=== PATIENT | male | born 1955 | race Caucasian/White ===

== ENCOUNTER 2020-09-13 14:24 | Inpatient (IN) | payer OTHER, MEDICARE ==
[~2020-09-13 14:24] MED LIST: Iopamidol-370 76% 500 ML 1 ML ONE
[2020-09-13 16:19] LABS: #Lymphocytes 1.5 thou/uL (1.20-3.40); #Monocytes 0.8 thou/uL (0.11-0.59); #Neutrophils 8.2 thou/uL (1.40-6.50); %Basophils 0.1 % (0.0-1.0); %Eosinophils 0.2 % (0.0-10.0); %Lymphocytes 14.3 % (21.0-51.0); %Monocytes 7.9 % (0.0-10.0); %Neutrophils 77.4 % (42.0-75.0); Hemoglobin 16.7 g/dL (14.0-18.0); Mean Corpuscular HGB CONC 33.6 g/dL (32.0-36.0); Mean Corpuscular Volume 92.3 fL (78.0-98.0); Mean Platelet Volume 8.2 fL (7.4-10.4); Platelet Count 172 thou/uL (130-400); RBC Distribution Width 13.7 % (11.5-14.5); Red Blood Cell (RBC) Count 5.39 mill/uL (4.70-6.10); White Blood Cell (WBC) Count 10.6 thou/uL (4.8-10.8)
[2020-09-13] MEDS ORDERED: Morphine 4 MG/ML VIAL ONE (16:25)
[2020-09-13] MEDS ORDERED: Ketorolac Tromethamine 30 MG/ML VIAL ONE (16:25)
[2020-09-13 16:43] LABS: ALT (SGPT) 35 U/L (8-55); AST (SGOT) 28 U/L (5-34); Albumin 4.7 g/dL (3.4-4.8); Alkaline Phosphatase 50 U/L (40-110); Anion Gap 18 mmol/L (10-20); BUN (Urea Nitrogen) 18 mg/dL (8.4-25.7); Bilirubin, Total 4.7 mg/dL (0.2-1.2); Calc. Creatinine Clearance 0 mL/min (70-130); Calcium 9.7 mg/dL (7.8-10.44); Carbon Dioxide 22 mmol/L (23-31); Chloride 99 mmol/L (98-107); Globulin 3.2 g/dL (2.4-3.5); Glucose 127 mg/dL (80-115); Potassium 3.6 mmol/L (3.5-5.1); Protein, Total 7.9 g/dL (5.8-8.1); Sodium 135 mmol/L (136-145)
[2020-09-13] MEDS ORDERED: Morphine 4 MG/ML VIAL SLOW IVP PRN (19:37)
[2020-09-13] MEDS ORDERED: Ketorolac Tromethamine 30 MG/ML VIAL IVP PRN (19:38)
[2020-09-13] MEDS ORDERED: Dextrose 50% Abboject 50 ML SYRINGE SLOW IVP PRN (19:59)
[2020-09-13] MEDS ORDERED: hydrALAZINE 20 MG/ML VIAL SLOW IVP PRN (19:59)
[2020-09-13] MEDS ORDERED: Ondansetron PF 4 MG/2 ML Vial IVP PRN (19:59)
[2020-09-13] MEDS ORDERED: Insulin Regular 300 UNITS/3 ML VIAL SC PRN ×2 (19:59)
[2020-09-13] MEDS ORDERED: Dextrose 5% in Water 1,000 ML IV PRN (19:59)
[2020-09-13] MEDS ORDERED: Rib Fracture Protocol PO PRN (20:00)
[2020-09-13] MEDS ORDERED: Cyclobenzaprine 10 MG TAB PO PRN (20:45)
[2020-09-13] MEDS: Senokot S 8.6-50 MG TAB PO SCH (21:35)
[2020-09-13] MEDS: Gabapentin 100 MG CAP PO SCH (21:36)
[2020-09-13] MEDS: Ibuprofen 600 MG TAB PO SCH (21:37)
[2020-09-13] MEDS: Famotidine 20 MG TAB PO SCH (21:37)
[2020-09-13 22:12] VITALS: BMI 27.9
[2020-09-13] MEDS: Acetaminophen 500 MG TAB PO SCH (23:03)
[2020-09-13] MEDS: traMADol HCl 50 MG TAB PO SCH (23:04)
[2020-09-13] MEDS ORDERED: Ketorolac Tromethamine 30 MG/ML VIAL IVP SCH (23:59)
[2020-09-13] MEDS ORDERED: Acetaminophen 650 MG Suppository PR SCH (23:59)
[2020-09-14] MEDS: Acetaminophen 500 MG TAB PO SCH ×2 (05:31→11:40)
[2020-09-14] MEDS: Ibuprofen 600 MG TAB PO SCH ×2 (05:33→14:21)
[2020-09-14] MEDS: traMADol HCl 50 MG TAB PO SCH ×2 (05:34→11:42)
[2020-09-14] MEDS: Famotidine 20 MG TAB PO SCH (08:25)
[2020-09-14] MEDS: Gabapentin 100 MG CAP PO SCH (08:25)
[2020-09-14] MEDS: Senokot S 8.6-50 MG TAB PO SCH (08:26)
[2020-09-14] MEDS ORDERED: Polyethylene Glycol 3350 17 GM Packet PO SCH (09:00)
[2020-09-14] MEDS ORDERED: traMADol HCl 50 MG TAB PO PRN (13:01)
[2020-09-14] MEDS ORDERED: Gabapentin 100 MG CAP PO SCH (15:00)
[2020-09-14 16:41] VITALS: BP 157/76; TEMP 97.9
== END 2020-09-14 17:48 | disposition home or self-care (01) | DRG 184 ==
LOC: ERS 14:24 → SURG A 18:16
PROVIDERS: ADMIT Surgery; ATTEND Surgery
DX: S22.42XA Multiple fractures of ribs, left side, initial encounter for closed fracture (principal); S27.0XXA Traumatic pneumothorax, initial encounter; W19.XXXA Unspecified fall, initial encounter; I10 Essential (primary) hypertension; E11.9 Type 2 diabetes mellitus without complications; Z90.49 Acquired absence of other specified parts of digestive tract; Z88.5 Allergy status to narcotic agent; Y92.79 Other farm location as the place of occurrence of the external cause
CPT/HCPCS: 36415; 36416; 71045; 71260; 74177; 80053; 85025; 90471; 90732; 93005; 94640; 96374; 96375; G0009; J1885; J2270; J7620; Q9967